=== PATIENT | female | born 1970 | race Caucasian/White ===

== ENCOUNTER 2023-10-13 21:13 | Observation (INO) | payer OTHER, SELFPAY ==
[2023-10-13 14:36] VITALS: BP 116/84
[2023-10-13 15:00] LABS: % Basophils 0.9 % (0-2); % Eosinophils 3.9 % (0-6); % Immature Granulocytes 0.1 % (0-0.5); % Lymphocytes 27.8 % (20.5-51.1); % Monocytes 5.3 % (1.7-9.3); Absolute Basophils 0.1 10^3/uL (0-0.2); Absolute Eosinophils 0.3 10^3/uL (0-0.7); Absolute Lymphocytes 1.9 10^3/uL (1.2-3.4); Absolute Monocytes 0.4 10^3/uL (0.1-0.6); Absolute Neutrophils 4.2 10^3/uL (1.4-6.5); Hematocrit 39.5 % (37.0-47.0); Hemoglobin 14.1 g/dL (12.0-16.0); Mean Corp Hgb Conc. 35.7 g/dL (33.0-37.0); Mean Corpuscular Hgb 30.4 pg (27.0-31.0); Mean Corpuscular Volume 85.1 fL (81.0-99.0); Mean Platelet Volume 10.5 fL (7.4-10.4); Nucleated Red Blood Cells % 0 %; Platelet Count 166 10^3/uL (130-400); Red Blood Cell Count 4.64 10^6/uL (4.20-5.40); White Blood Cell Count 6.7 10^3/uL (4.8-10.8)
[2023-10-13 15:23] LABS: ALT (SGPT) 11 U/L (0-35); AST (SGOT) 21 U/L (14-36); Albumin 4.8 g/dl (3.5-5.0); Alkaline Phosphatase 54 U/L (38-126); Blood Urea Nitrogen 17 mg/dl (7-17); Calcium 10.3 mg/dl (8.4-10.2); Carbon Dioxide 30 mmol/L (22-30); Chloride 105 mmol/L (98-107); Glucose 100 mg/dl (70-99); Potassium 3.8 mmol/L (3.5-5.1); Sodium 142 mmol/L (135-145); Total Bilirubin 0.6 mg/dl (0.2-1.3); Total Protein 7.1 g/dl (6.3-8.2); eGFR > 60.00
--- NOTE | 2023-10-13 17:17 | ED.GENMED ---
History of Present Illness
<Jose A Mendez MD - Last Filed: 10/14/23 14:59>
General
Chief Complaint: Visual Problem
Source: patient
Exam Limitations: none
Time Seen by Provider: 10/13/23 17:17
Travel History
Have you had any contact with someone who has COVID-19?: No
Do you have any symptoms of coronavirus? Fever > 100 degrees, chills, cough, shortness of breath, sore throat, loss of taste or smell, muscle aches, or headache?: No
History of Present Illness
History of Present Illness:
53-year-old female with a vague headache this morning more sinus-like. Different than her previous migraines. This was followed by blurry vision to both eyes. Patient states this is improved moderately but is still present. She can see things
well just slightly blurry. Also developed pain under the left
Past History
<Jose A Mendez MD - Last Filed: 10/14/23 14:59>
Past History
ED Past Medical History: Other (Ulcers); Negative Asthma, HTN, Hypercholesterolemia or NIDDM
ED Past Surgical History: Gynecological (Fallopen Tube removed)
Social History
Tobacco: Smoker
Alcohol: Occasional
Drug: None
Personal: Single
Living: with family
Phy Exam
<Jose A Mendez MD - Last Filed: 10/14/23 14:59>
Physical Exam
Physical Exam:
GENERAL: Alert and oriented in no apparent distress
EYE: Orbits normal. Extraocular muscles intact. This sharp
NECK: Supple, no significant adenopathy.
ENT: Pharynx without erythema
CARDIAC: Regular rate and rhythm without any obvious murmurs.
LUNGS: Clear breath sounds,normal
ABDOMEN: Soft, without focal tenderness or distention
NEUROLOGICAL: Alert and oriented , cranial nerves II through XII intact. Speech normal. [id number] normal. No drift.
SKIN: Warm and dry, no rash or lesion, no discoloration, skin intact.
MUSCULOSKELETAL: No edema,no deformity.Good color
PSYCH: Normal and appropriate interaction.
Course
<Jose A Mendez MD - Last Filed: 10/14/23 14:59>
Orders/Labs/Results
Orders:
Orders
10/13/23 14:40
CT Head W/o Iv Contrast Urgent
Comment:
Reason For Exam: headache, blurred vision, left ear pain
10/13/23 14:46
Electrocardiogram (*1) Urgent
Reason for Study: Vertigo / Dizzy
EKG- Treatment ONCE
10/13/23 14:49
Complete Blood Count/With Diff Urgent
Comprehensive Metabolic Panel Urgent
Erythrocyte Sed Rate Urgent
Comment: ADD ON
10/13/23 17:18
Add On- LAB Urgent
Tests Added?: esr
10/13/23 17:39
CT Head & Neck Angio W/wo IV Urgent
Comment:
Reason For Exam: Blurry vision/left neck pain/headache
IV Insert/Care/Rem.- Treatment PRN
0.9% Sodium Chloride 500 ml [Nss] 500 ml IV BOLUS
10/13/23 20:19
IV Insert/Care/Rem.- Treatment PRN
Aspirin Chewable [Low Strength Aspirin] 324 mg PO NOW STA
10/13/23 20:49
Code Status As Directed
Resuscitation Status: Full Code
10/16/23 11:00
DC Protocol for Telemetry ONCE
Abnormal Lab Results
10/13/23
14:49
MPV 10.5 H fL
(7.4-10.4)
Glucose 100 H mg/dl
(70-99)
Calcium 10.3 H mg/dl
(8.4-10.2)
10/13/23 14:49
10/13/23 14:49
Vital Signs
Initial and Last Documented VS:
Initial Vital Signs
Temp Pulse Resp BP Pulse Ox
98.3 F 87 18 116/84 99
10/13/23 14:36 10/13/23 14:36 10/13/23 14:36 10/13/23 14:36 10/13/23 14:36
Last Documented Vital Signs
Temp Pulse Resp BP Pulse Ox
98.3 F 77 16 100/71 96
10/13/23 14:36 10/13/23 18:53 10/13/23 18:53 10/13/23 18:53 10/13/23 18:53
<Abiodun Ramesh PA-C - Last Filed: 10/14/23 16:35>
Orders/Labs/Results
Orders:
Orders
10/13/23 14:40
CT Head W/o Iv Contrast Urgent
Comment:
Reason For Exam: headache, blurred vision, left ear pain
10/13/23 14:46
Electrocardiogram (*1) Urgent
Reason for Study: Vertigo / Dizzy
EKG- Treatment ONCE
10/13/23 14:49
Complete Blood Count/With Diff Urgent
Comprehensive Metabolic Panel Urgent
Erythrocyte Sed Rate Urgent
Comment: ADD ON
10/13/23 17:18
Add On- LAB Urgent
Tests Added?: esr
10/13/23 17:39
CT Head & Neck Angio W/wo IV Urgent
Comment:
Reason For Exam: Blurry vision/left neck pain/headache
IV Insert/Care/Rem.- Treatment PRN
0.9% Sodium Chloride 500 ml [Nss] 500 ml IV BOLUS
10/13/23 20:19
IV Insert/Care/Rem.- Treatment PRN
Aspirin Chewable [Low Strength Aspirin] 324 mg PO NOW STA
10/13/23 20:49
Code Status As Directed
Resuscitation Status: Full Code
10/16/23 11:00
DC Protocol for Telemetry ONCE
Abnormal Lab Results
10/13/23
14:49
MPV 10.5 H fL
(7.4-10.4)
Glucose 100 H mg/dl
(70-99)
Calcium 10.3 H mg/dl
(8.4-10.2)
10/13/23 14:49
10/13/23 14:49
Vital Signs
Initial and Last Documented VS:
Initial Vital Signs
Temp Pulse Resp BP Pulse Ox
98.3 F 87 18 116/84 99
10/13/23 14:36 10/13/23 14:36 10/13/23 14:36 10/13/23 14:36 10/13/23 14:36
Last Documented Vital Signs
Temp Pulse Resp BP Pulse Ox
98.3 F 77 16 100/71 96
10/13/23 14:36 10/13/23 18:53 10/13/23 18:53 10/13/23 18:53 10/13/23 18:53
<Jose A Mendez MD - Last Filed: 10/14/23 14:59>
*Radiology
Radiology exam reviewed: radiology read reviewed (CT head neck angio negative)
*Pulse Oximetry
Patient hypoxic: no
*EKG
Interpreted by ED Provider?: Yes
Interpretation: normal
Comparison EKG: no changes
Heart Rate: 73
Rate: normal
Rhythm: sinus and sinus arrhythmia
[place]: normal axis
Interval: normal interval
QRS Pattern: normal QRS
Ischemia: no ischemia
<Abiodun Ramesh PA-C - Last Filed: 10/14/23 16:35>
*Critical Care Note
Total Time (30-74mins, 75-104mins- exclusive of procedures): Not Applicable
<Jose A Mendez MD - Last Filed: 10/14/23 14:59>
Update Note
Update Note:
Patient is medically stable. Workup unremarkable. Neurologic exam normal although still complaining of some mild blurriness. Discussed with neurology. Aspirin and admit for further evaluation
<Abiodun Ramesh PA-C - Last Filed: 10/14/23 16:35>
Update Note
Update Note:
Patient is medically stable. Workup unremarkable. Neurologic exam normal although still complaining of some mild blurriness. Discussed with neurology. Aspirin and admit for further evaluation
1: Pt's came out of room and informed me that they would like to sign out AMA. Admitting hospitalist Dr Cardozo made aware, Dr Cardozo will have pt sign AMA paper. Pt advised she will need to f/u with PCP for MRI, will recommend baby aspirin
81mg daily. I did not formally evaluate this patient. --Abiodun Ramesh PA-C
ED Attending Note
<Jose A Mendez MD - Last Filed: 10/14/23 14:59>
-
Portions of this chart may have been created with voice recognition software.� Occasional wrong word or��sound alike� substitutions may have occurred due to the inherent limitations of voice recognition software.
Discharge Plan
Departure
Patient Disposition: Against Medical Advice
Date of Disposition: 10/13/23
Time of Disposition: 20:21
Discharge Problem:
Visual changes/headache, Possible TIA
Interventions
Interventions:
*Risk Screen - Suicide Last Done: 10/13/23 14:36
*General Assessment Last Done: 10/13/23 14:36
*Neglect/Abuse Screening Last Done: 10/13/23 14:36
*ED COVID-19 Vaccine History Last Done: 10/13/23 17:57
*Nursing Disposition Last Done: 10/13/23 22:01
ED- Neurological Assessment Last Done: 10/13/23 17:57
ED-EENT Assessment Last Done: 10/13/23 17:57
ED Swallowing Screen Last Done: 10/13/23 17:57
Discharge Date and Time
Discharge Date/Time: 10/13/23 22:01
[2023-10-13 17:47] LABS: Erythrocyte Sed Rate 3 mm/hour (0-20)
[2023-10-13 17:57] VITALS: BMI 20.7
[2023-10-13] MEDS: NSS 500 IV (18:03)
[2023-10-13 18:53] VITALS: BP 100/71
[2023-10-13] MEDS: LOW STRENGTH ASPIRIN 324 MG PO (20:26)
--- NOTE | 2023-10-13 20:26 | HPS.HSE ---
Family Physician
-
Family Physician: Nathaniel Swift DO
Chief Complaint
-
blurry vision
History of Present Illness
53-year-old female with PMH for migraine presented to us with headache, associated with jaw line and back of ear pain. head ache resolved. patient also complained of blurry vision. denied dizzy or syncopal episode. denied fever, chills, chest
pain,sob. denied abdominal pain, n,v,d. denied dysuria or hematuria.
head CT and CTA negative. received asa in ER. admitting for further management.
Medical History
Past Medical History
Past Medical History: Reports Other
Additional Past Medical History:
rectal bleeding
Grains
Past Surgical History: Reports Other
Additional Past Surgical History:
torn ACL right
right ACL surgery
ectopic left tube removed
C section
Social History
Tobacco: Smoker (I have a back)
Alcohol: None
Drug: None
Personal:
Living: With Family
Family History
Family History: Not pertinent
Allergies / Home Medications
Allergies reflects when Allergies were last updated in [facility].
Home Medications with original date entered in [facility]
Allergy/Medication List:
Allergies
Allergy/AdvReac Type Severity Reaction Status Date / Time
No Known Allergies Allergy Verified 10/08/21 10:50
Home Medications
No Meds [No Current Medications] 10/13/23
Review of Systems
-
Constitutional: Reports No Symptoms
EENT: Reports Other (blurry vision)
Respiratory: Reports No Symptoms
Cardiac: Reports No Symptoms
Abdomen/GI: Reports No Symptoms
: Reports No Symptoms
Musculoskeletal: Reports No Symptoms
Skin: Reports No Symptoms
Neurological: Reports Headache and Other (Back of her left ear and jaw line pain)
Endocrine: Reports No Symptoms
Hematologic/Lymphatic: Reports No Symptoms
Psych: Reports No Symptoms
Physical Exam
Vital Signs
Vital Signs
Temp Pulse Resp BP Pulse Ox
98.3 F 77 16 100/71 96
10/13/23 14:36 10/13/23 18:53 10/13/23 18:53 10/13/23 18:53 10/13/23 18:53
Physical Exam
General: Well Developed, Well Nourished and No Apparent Distress
HEENT: NormoCephalic, Moist mucous membranes and Atraumatic
Respiratory: Clear
Cardiac: S1/S2 and Regular Rhythm; No Murmur or Rub
GI: Soft, Non Tender, Non Distended and Normal Bowel Sounds; No Organomegaly
Rectal: Deferred by Provider
Musculoskeletal: No Clubbing, No Cyanosis and No Edema
Skin: No Rash
Neuro: AO x 3 and Nonfocal/grossly intact
Psych: Calm
Laboratory Results
-
10/13/23 14:49
10/13/23 14:49
Laboratory Results
Total Bilirubin 0.6 mg/dl (0.2-1.3) 10/13/23 14:49
AST 21 U/L (14-36) 10/13/23 14:49
ALT 11 U/L (0-35) 10/13/23 14:49
Alkaline Phosphatase 54 U/L (38-126) 10/13/23 14:49
Data Reviewed
-
Diagnostic Radiology: Report Reviewed by me
CT Scan: Report Reviewed by me
Lab Data: Labs Reviewed by me
Impression/Plan
-
# blurry vision/headache, neck pain disease rule out acute CVA/TIA
- CTA with no significant vascular occlusion, aneurysm or dissection
-CT head with no acute intracranial abnormality
-EKG with normal sinus rhythm with sinus arrhythmia
-Obtain MRI
-Obtain A1c, lipid profile
-Aspirin, statin
-Neurology consulted
# Nicotine dependence
-Denies nicotine patch
#DVT prophylaxis
=scd
#CODE status
-full code
--- NOTE | 2023-10-13 21:03 | W.PN.UPDATE ---
Update Note
Progress Note Update
HPI: 53-year-old female with PMH migraine; presented with headache in the morning, associated with bilateral blurry vision and left ear pain. Her headache has resolved, but blurry vision persisted.
She denies to dizziness, nausea/vomiting, jaw pain with eating, fever/chills, chest pain, sob, abdominal pain, weakness/numbness in extremities.
She was seen in urgent care, was told to come to the emergency room.
In the ED, her CT head and CTA were unrevealing. She received aspirin. Neuro recommended admission for MRI brain.
A/P:
# Resolved headache with persistent blurry vision
# L ear pain, unclear if left ear pain is associated with blurry vision or not
CT head and CTA were unrevealing
Check MRI brain
Check lipid and can also check A1c as part of TIA/stroke work up
Neurology CS
Consider ENT eval if left ear pain persist in the morning
# History of migraine
# Nicotine dependence
Declines to nicotine patch
DVT prophylaxix: scd
CODE status: full code
--- NOTE | 2023-10-13 21:51 | W.PN.UPDATE ---
Update Note
Progress Note Update
Informed by RN that pt would like to leave AMA.
Patient seen at bedside again.
We discussed the risk of her leaving AMA including worsening current symptoms, inadequate workup which could lead to .
She understands risk and would still like to leave AMA. Family at bedside.
AMA papers signed by patient. AMA paper given to ER to be scanned in to chart.
Patient will be discharged directly from the ER.
Will cancel admission orders
--- NOTE | 2023-10-13 21:59 | EDRN ---
Pt. was extremely upset there are no rooms upstairs for her to go to. Pt. stated to this RN, 'I want to go home, I don't need to stay here, I am not critical, I can follow up and do an MRI on my own time'. Admitting aware, went to bedside and had
pt. sign out AMA. RN went over strict return precautions w/ patient, pt. vocalized understanding, IV removed. Pt. left ED w/ steady gait.
== END 2023-10-13 23:23 | disposition left against medical advice (07) ==
LOC: ED 21:13
PROVIDERS: ADMITTING PHYSICIAN Internal Medicine; EMERGENCY PHYSICIAN Emergency Medicine; FAMILY PHYSICIAN Family Medicine
DX: R51.9 Headache, unspecified (principal); H53.8 Other visual disturbances; R42 Dizziness and giddiness; M54.2 Cervicalgia; I49.8 Other specified cardiac arrhythmias; H92.02 Otalgia, left ear; F17.200 Nicotine dependence, unspecified, uncomplicated; Z53.29 Procedure and treatment not carried out because of patient's decision for other reasons
CPT/HCPCS: 70450; 70496; 70498; 80053; 85025; 85652; 93005; 99406; G0378; Q9967